=== PATIENT | male | born 1975 | race Caucasian/White ===

== ENCOUNTER 2021-05-15 17:08 | Emergency (ER) | payer BC ==
[2021-05-15 18:58] VITALS: RESP 20
[2021-05-15] MEDS ORDERED: ACETAMINOPHEN TAB 325 MG TAB PO STA (19:11)
[2021-05-15] MEDS ORDERED: IBUPROFEN 600 MG TAB PO STA (19:11)
[2021-05-15] MEDS ORDERED: DEXAMETHASONE SOD PHOSPHATE 10 MG/ML 1 ML VIAL IVP STA (19:21)
[2021-05-15] MEDS ORDERED: BAMLANIVIMAB (EUA) 700 MG, ETESEVIMAB (EUA) 1,400 MG in SODIUM CHLORIDE 0.9% 50 ML IVPB ONE (20:00)
--- NOTE | 2021-05-15 20:15 | ED ---
URI HPI - General Chief Complaint: Upper Respiratory Infection Stated Complaint: Covid +, low oxygen, CAMILLA Time Seen by Provider: 05/15/21 19:10 Source: patient, RN notes reviewed Mode of arrival: ambulatory Limitations: no limitations - History of Present Illness Initial Comments: Patient is a 45-year-old male that presents to the emergency department c omplaining of Covid-positive with symptoms for the past 2 days. He notes he came to the hospital for evaluation. Patient denied any severe symptoms just a mild cough and fever. He denied taking any Tylenol Motrin since this morning. He was otherwise well-appearing. He denied chest pain shortness of breath headache nausea vomiting diarrhea constipation fatigue chills. - Related Data Allergies Allergy/AdvReac Type Severity Reaction Status Date / Time No Known Allergies Allergy Verified 05/15/21 18:54 Review of Systems ROS Statement: Those systems with pertinent positive or pertinent negative responses have been documented in the HPI. ROS Other: All systems not noted in ROS Statement are negative. Past Medical History Past Medical History: No Reported History History of Any Multi-Drug Resistant Organisms: None Reported Past Surgical History: Joint Replacement Past Psychological History: No Psychological Hx Reported Smoking Status: Never smoker Past Alcohol Use History: Occasional Past Drug Use History: None Reported General Exam Limitations: no limitations General appearance: alert, in no apparent distress Head exam: Present: atraumatic, normocephalic, normal inspection Eye exam: Present: normal appearance, PERRL, EOMI. Absent: scleral icterus, conjunctival injection, periorbital swelling ENT exam: Present: normal exam, mucous membranes moist Neck exam: Present: normal inspection Respiratory exam: Present: normal lung sounds bilaterally. Absent: respiratory distress, wheezes, rales, rhonchi, stridor Cardiovascular Exam: Present: regular rate, normal rhythm, normal heart sounds. Absent: systolic murmur, diastolic murmur, rubs, gallop, clicks GI/Abdominal exam: Present: soft, normal bowel sounds. Absent: distended, tenderness, guarding, rebound, rigid Extremities exam: Present: normal inspection, full ROM, normal capillary refill. Absent: tenderness, pedal edema, joint swelling, calf tenderness Neurological exam: Present: alert, oriented X3 Psychiatric exam: Present: normal affect, normal mood Skin exam: Present: warm, dry, intact, normal color. Absent: rash Course Vital Signs 05/15/21 18:54 Temperature 100.8 F H Pulse Rate 115 H Respiratory 20 Rate Blood Pressure 117/74 O2 Sat by Pulse 96 Oximetry Medical Decision Making - Medical Decision Making 45-year-old male Covid-positive symptoms for 2 days. Patient does meet criteria for monoclonal antibody infusion and wishes to undergo them. Tylenol 650 mg, 6 mg of Motrin ordered for fever. 10 Milligrams of Decadron ordered. Patient is agreeable with discharge home after infusion. Case discussed with Dr. Beavers, patient can discharge home. Disposition Clinical Impression: COVID Disposition: HOME SELF-CARE Condition: Stable Instructions (If sedation given, give patient instructions): Coronavirus Disease 2019 (COVID-19) Additional Instructions: Please return to the Emergency Department if symptoms worsen or any other concerns. Quarantine per CDC guidelines. Follow-up with primary care in 1-2 days. Is patient prescribed a controlled substance at d/c from ED?: No Referrals: None,Stated [Primary Care Provider] - 1-2 days Time of Disposition: 20:15
[2021-05-15] MEDS ORDERED: SODIUM CHLORIDE 0.9% 50 ML IVPB ONE (20:30)
[2021-05-15 21:53] VITALS: BP 122/71; PULSE 91; TEMP 98.9
== END 2021-05-15 21:53 | disposition home or self-care (01) ==
LOC: EC 17:08
DX: U07.1 COVID-19 (principal); Z72.89 Other problems related to lifestyle
CPT/HCPCS: 99283; 96365; 96375; 96361; J1100; J3490

== ENCOUNTER 2024-12-17 11:33 | Emergency (ER) | payer BC ==
[2024-12-17 11:42] VITALS: TEMP 98.4
--- NOTE | 2024-12-17 12:23 | ED ---
URI HPI - General Source: patient, RN notes reviewed Mode of arrival: ambulatory Limitations: no limitations <Ayaka Lowe - Last Filed: 12/17/24 12:20> <Johnny Haddad - Last Filed: 12/17/24 15:27> - General Chief Complaint: Upper Respiratory Infection Stated Complaint: Coughing Up Blood Time Seen by Provider: 12/17/24 12:10 - History of Present Illness Initial Comments: Quick Note: This is a 49-year-old male who presents to the emergency department for hemoptysis. Patient went to urgent care for an upper respiratory infection a couple of weeks ago. States that he was treated with a 5-day course of steroids which he has finished and is currently finishing up a course of antibiotics. Over the last couple of days he has found himself coughing up blood and urgent care advised he come in to rule out a pulmonary embolus. He does report some shortness of breath. (Ayaka Lowe) 49-year-old male with upper respiratory infection, productive cough over the past 6 or 7 days with 2 to 3 days of small amount of blood-tinged sputum. Several small blood-tinged mucus, no difficulty breathing. No central chest pain. No fever. (Johnny Haddad) - Related Data Allergies Allergy/AdvReac Type Severity Reaction Status Date / Time No Known Allergies Allergy Verified 12/17/24 11:42 Review of Systems ROS Other: All systems not noted in ROS Statement are negative. <Ayaka Lowe - Last Filed: 12/17/24 12:20> ROS Other: All systems not noted in ROS Statement are negative. <Johnny Haddad - Last Filed: 12/17/24 15:27> ROS Statement: Those systems with pertinent positive or pertinent negative responses have been documented in the HPI. Past Medical History Past Medical History: No Reported History History of Any Multi-Drug Resistant Organisms: None Reported Past Surgical History: Joint Replacement Past Psychological History: No Psychological Hx Reported Smoking Status: Never smoker Past Alcohol Use History: Occasional Past Drug Use History: None Reported <Ayaka Lowe - Last Filed: 12/17/24 12:20> General Exam Limitations: no limitations <Ayaka Lowe - Last Filed: 12/17/24 12:20> General appearance: alert, in no apparent distress Head exam: Present: atraumatic, normocephalic Eye exam: Present: normal appearance, PERRL ENT exam: Present: normal exam Neck exam: Present: normal inspection. Absent: tenderness, meningismus Respiratory exam: Present: normal lung sounds bilaterally. Absent: respiratory distress, wheezes Cardiovascular Exam: Present: regular rate, normal rhythm GI/Abdominal exam: Present: soft. Absent: distended, rebound Extremities exam: Present: normal inspection, normal capillary refill. Absent: pedal edema, calf tenderness Neurological exam: Present: alert, oriented X3, CN II-XII intact. Absent: motor sensory deficit Psychiatric exam: Present: normal affect, normal mood Skin exam: Present: warm, dry, intact <Johnny Haddad - Last Filed: 12/17/24 15:27> - General Exam Comments Initial Comments: Visual Physical Exam Vital signs reviewed General: Well-appearing, nontoxic, no acute distress. Head: Normocephalic, atraumatic Eyes: PERRLA, EOMI ENT: Airway patent Chest: Nonlabored breathing Skin: No visual rash, normal skin tone Neuro: Alert and oriented 3 Musculoskeletal: No gross abnormalities (Ayaka Lowe) Course Vital Signs 12/17/24 11:40 Temperature 98.4 F Pulse Rate 90 Respiratory 18 Rate Blood Pressure 143/92 O2 Sat by Pulse 96 Oximetry Medical Decision Making <Ayaka Lowe - Last Filed: 12/17/24 12:20> - Lab Data Result diagrams: 12/17/24 12:50 12/17/24 12:50 <Johnny Haddad - Last Filed: 12/17/24 15:27> - Medical Decision Making I performed the QuickNote portion of this chart. Signed Ayaka Lowe PA-C. (Ayaka Lowe) Was pt. sent in by a medical professional or institution (FERNANDEZ Monterroso, WRITING TUTOR, urgent care, hospital, or group home...) When possible be specific @ -No Did you speak to anyone other than the patient for history (EMS, parent, family, police, friend...)? What history was obtained from this source @ -No Did you review nursing and triage notes (agree or disagree)? Why? @ -I reviewed and agree with nursing and triage notes Were old charts reviewed (outside hosp., previous admission, EMS record, old EKG, old radiological studies, urgent care reports/EKG's, group home records)? Report findings @ -No old charts were reviewed Differential Dyspnea: Coronary syndrome, arrhythmia, tamponade, asthma, COPD, pulmonary embolism, pneumonia, pneumothorax, pulmonary effusion, anaphylaxis, diabetic ketoacidosis, flailed chest, pulmonary contusion, diaphragmatic rupture, anemia, zheng romuscular, this is not meant to be an all-inclusive list. EKG interpreted by me (3pts min.). @Chest x-ray sinus rhythm rate of 77, PA interval 187, QRS duration 98, QTc [address] segment elevation. X-rays interpreted by me (1pt min.). @ -[Chest x-ray is negative for focal pneumonia, no acute process CT interpreted by me (1pt min.). @ -None done U/S interpreted by me (1pt. min.). @ -None done What testing was considered but not performed or refused? (CT, X-rays, U/S, labs)? Why? @ -None What meds were considered but not given or refused? Why? @ -None Did you discuss the management of the patient with other professionals (professionals i.e. , PA, WRITING TUTOR, lab, RT, psych nurse, psychologist social, parimutuel cashier, teacher, natural resource officer, employment case manager)? Give summary @ -No Was smoking cessation discussed for >3mins.? @ -No Was critical care preformed (if so, how long)? @ -No Were there social determinants of health that impacted care today? How? (Homelessness, low income, unemployed, alcoholism, drug addiction, transportation, low edu. Level, literacy, decrease access to med. care, long-term, rehab)? @ -No Was there de-escalation of care discussed even if they declined (Discuss DNR or withdrawal of care, Hospice)? DNR status @ -No What co-morbidities impacted this encounter? (DM, HTN, Smoking, COPD, CAD, Cancer, CVA, ARF, Chemo, Hep., AIDS, mental health diagnosis, sleep apnea, morbid obesity)? @ -None Was patient admitted / discharged? Hospital course, mention meds given and route, prescriptions, significant lab abnormalities, going to OR and other pertinent info. @ -This is a well-appearing 49-year-old male with several episodes of blood- tinged sputum and hemoptysis. Patient states overall he is getting better from his respiratory illness. He was sent from urgent care for further evaluation and concern for pulmonary embolism. Patient hemodynamically stable. Normal oxygenation, normal heart rate, CBC shows stable hemoglobin at 15.6, mild leukocytosis. Negative D-dimer, normal electrolytes, negative troponin. Patient viral panel is also negative. Patient is advised to monitor his mucus and symptoms closely. Follow-up with his primary care provider and return with any worsening or changing symptoms for further testing. Undiagnosed new problem with uncertain prognosis? @ -No Drug Therapy requiring intensive monitoring for toxicity (Heparin, Nitro, Insulin, Cardizem)? @ -No Were any procedures done? @ -No Diagnosis/symptom? @Bronchitis, trace hemoptysis Acute, or Chronic, or Acute on Chronic? @ -[Acute Uncomplicated (without systemic symptoms) or Complicated (systemic symptoms)? @ -Default Side effects of treatment? @ -No Exacerbation, Progression, or Severe Exacerbation? @ -No Poses a threat to life or bodily function? How? (Chest pain, USA, SD, pneumonia, PE, COPD, DKA, ARF, appy, cholecystitis, CVA, Diverticulitis, Homicidal, Suicidal, threat to staff... and all critical care pts) @Low risk at this time (Johnny Haddad) - Lab Data Lab Results 12/17/24 12/17/24 12/17/24 Range/Units 12:50 12:50 12:50 WBC 11.25 H (4.50-10.00) 10*3/uL RBC 4.91 (4.40-5.60) 10*6/uL Hgb 15.6 (13.0-17.0) g/dL Hct 45.8 (39.6-50.0) % MCV 93.3 (80.0-97.0) fL MCH 31.8 (27.0-32.0) pg MCHC 34.1 (32.0-37.0) g/dL Plt Count 342 (140-440) 10*3/uL MPV 9.1 L (9.5-12.2) fL Immature Gran % (Auto) 0.8 % Neutrophils % 60.0 % Lymphocytes % 23.2 % Monocytes % 8.3 % Eosinophils % 7.1 % Basophils % 0.6 % Immature Gran # 0.09 H (0.00-0.04) 10*3/uL Neutrophils # 6.75 (1.80-7.70) 10*3/uL Lymphocytes # 2.61 (0.90-5.00) 10*3/uL Monocytes # 0.93 (0.20-1.00) 10*3/uL Eosinophils # 0.80 H (0.04-0.35) 10*3/uL Basophils # 0.07 (0.00-0.10) 10*3/uL PT 10.4 (10.0-12.5) sec INR 0.9 (<1.2) APTT 23.0 (22.0-30.0) sec D-Dimer 0.22 (<0.60) mg/L FEU Sodium 138 (137-145) mmol/L Potassium 4.3 (3.5-5.1) mmol/L Chloride 103 (98-107) mmol/L Carbon Dioxide 25 (22-30) mmol/L Anion Gap 10 mmol/L BUN 17 (9-20) mg/dL Creatinine 0.76 (0.66-1.25) mg/dL Est GFR (CKD-EPI)AfAm >90 (>60 ml/min/1.73 sqM) Est GFR (CKD-EPI)NonAf >90 (>60 ml/min/1.73 sqM) Glucose 117 H (74-99) mg/dL Calcium 9.4 (8.4-10.2) mg/dL Total Bilirubin 0.9 (0.2-1.3) mg/dL AST 29 (17-59) U/L ALT 36 (4-49) U/L Alkaline Phosphatase 74 (38-126) U/L Troponin I (0.000-0.034) ng/mL Total Protein 7.8 (6.3-8.2) g/dL Albumin 4.6 (3.5-5.0) g/dL Influenza Type A (PCR) (Not Detectd) Influenza Type B (PCR) (Not Detectd) RSV (PCR) (Not Detectd) SARS-CoV-2 (PCR) (Not Detectd) 06/25/25 06/25/25 Range/Units 12:50 12:50 WBC (4.50-10.00) 10*3/uL RBC (4.40-5.60) 10*6/uL Hgb (13.0-17.0) g/dL Hct (39.6-50.0) % MCV (80.0-97.0) fL MCH (27.0-32.0) pg MCHC (32.0-37.0) g/dL Plt Count (140-440) 10*3/uL MPV (9.5-12.2) fL Immature Gran % (Auto) % Neutrophils % % Lymphocytes % % Monocytes % % Eosinophils % % Basophils % % Immature Gran # (0.00-0.04) 10*3/uL Neutrophils # (1.80-7.70) 10*3/uL Lymphocytes # (0.90-5.00) 10*3/uL Monocytes # (0.20-1.00) 10*3/uL Eosinophils # (0.04-0.35) 10*3/uL Basophils # (0.00-0.10) 10*3/uL PT (10.0-12.5) sec INR (<1.2) APTT (22.0-30.0) sec D-Dimer (<0.60) mg/L FEU Sodium (137-145) mmol/L Potassium (3.5-5.1) mmol/L Chloride (98-107) mmol/L Carbon Dioxide (22-30) mmol/L Anion Gap mmol/L BUN (9-20) mg/dL Creatinine (0.66-1.25) mg/dL Est GFR (CKD-EPI)AfAm (>60 ml/min/1.73 sqM) Est GFR (CKD-EPI)NonAf (>60 ml/min/1.73 sqM) Glucose (74-99) mg/dL Calcium (8.4-10.2) mg/dL Total Bilirubin (0.2-1.3) mg/dL AST (17-59) U/L ALT (4-49) U/L Alkaline Phosphatase (38-126) U/L Troponin I <0.012 (0.000-0.034) ng/mL Total Protein (6.3-8.2) g/dL Albumin (3.5-5.0) g/dL Influenza Type A (PCR) Not Detected (Not Detectd) Influenza Type B (PCR) Not Detected (Not Detectd) RSV (PCR) Not Detected (Not Detectd) SARS-CoV-2 (PCR) Not Detected (Not Detectd) Disposition <Ayaka Lowe - Last Filed: 12/17/24 12:20> Is patient prescribed a controlled substance at d/c from ED?: No Time of Disposition: 15:24 <Johnny Haddad - Last Filed: 12/17/24 15:27> Clinical Impression: Bronchitis Disposition: HOME SELF-CARE Condition: Fair Instructions (If sedation given, give patient instructions): Acute Bronchitis (ED) Referrals: None,Stated [Primary Care Provider] - 1-2 days
[2024-12-17 13:04] LABS: Basophils # (A) 0.07 10*3/uL (0.00-0.10); Basophils % (A) 0.6 %; Eosinophils % (A) 7.1 %; HCT 45.8 % (39.6-50.0); HGB 15.6 g/dL (13.0-17.0); Lymphocytes # (A) 2.61 10*3/uL (0.90-5.00); Lymphocytes % (A) 23.2 %; MCH 31.8 pg (27.0-32.0); MCHC 34.1 g/dL (32.0-37.0); MCV 93.3 fL (80.0-97.0); Mean Platelet Volume 9.1 fL (9.5-12.2); Monocytes # (A) 0.93 10*3/uL (0.20-1.00); Monocytes % (A) 8.3 %; Neutrophils # (A) 6.75 10*3/uL (1.80-7.70); Platelet Count 342 10*3/uL (140-440); RBC 4.91 10*6/uL (4.40-5.60); RDW 12.8 % (11.5-14.5); WBC 11.25 10*3/uL (4.50-10.00)
[2024-12-17 13:18] LABS: INR 0.9 (<1.2); Prothrombin Time 10.4 sec (10.0-12.5)
[2024-12-17 13:20] LABS: ALT 36 U/L (4-49); AST 29 U/L (17-59); African American GFR (CKD) >90 (>60 ml/min/1.73 sqM); Albumin 4.6 g/dL (3.5-5.0); Alkaline Phosphatase 74 U/L (38-126); Anion Gap 10 mmol/L; Blood Urea Nitrogen 17 mg/dL (9-20); Calcium 9.4 mg/dL (8.4-10.2); Carbon Dioxide 25 mmol/L (22-30); Chloride 103 mmol/L (98-107); Glucose 117 mg/dL (74-99); Non-African American GFR(CKD) >90 (>60 ml/min/1.73 sqM); Potassium 4.3 mmol/L (3.5-5.1); Sodium 138 mmol/L (137-145); Total Bilirubin 0.9 mg/dL (0.2-1.3); Total Protein 7.8 g/dL (6.3-8.2)
--- NOTE | 2024-12-17 13:25 | XR ---
EXAMINATION TYPE: XR chest 2V DATE OF EXAM: 12/17/2024 1:04 PM COMPARISON: None CLINICAL INDICATION: Male, 49 years old with history of Hemoptysis, , TECHNIQUE: PA and lateral views FINDINGS: The cardiomediastinal silhouette, aorta, and pulmonary vasculature are within normal limits. Lungs an d pleural spaces are clear. IMPRESSION: No acute cardiopulmonary process. [facility], Workstation: [id number], 12/17/2024 1:23 PM
[2024-12-17 13:40] LABS: Influenza A Not Detected (Not Detectd); Influenza B Not Detected (Not Detectd); RSV Not Detected (Not Detectd)
[2024-12-17 15:44] VITALS: BP 140/96; PULSE 85; RESP 20
== END 2024-12-17 15:44 | disposition home or self-care (01) ==
LOC: EC 11:33
DX: J40 Bronchitis, not specified as acute or chronic (principal)
CPT/HCPCS: 36415; 71046; 80053; 84484; 85025; 85379; 85610; 85730; 87636; 93005; 99284